=== PATIENT | male | born 1975 | race Caucasian/White ===

== ENCOUNTER 2018-11-17 07:08 | Day surgery (SDC) | payer BC ==
[~2018-11-17] VITALS: Ht 193 cm; Wt 102.5 kg
== END 2018-11-17 22:42 | disposition home or self-care (01) ==
LOC: ORSCMMR 07:08 → ORD 08:15 → ORSCMMR 22:42
PROVIDERS: Orthopaedic Surgery
PROC: 0LQ70ZZ Repair Right Hand Tendon, Open Approach (ICD-10-PCS; principal; 2018-11-17 08:30)
DX: S66.211A Strain of extensor muscle, fascia and tendon of right thumb at wrist and hand level, initial encounter (principal); Y93.67 Activity, basketball
CPT/HCPCS: J0690; J1885; J3010; J7120